=== PATIENT | male | born 1975 | race Caucasian/White ===

== ENCOUNTER → 2017-02-03 | Outpatient (CLI) | payer MEDICARE ==
[~2017-02-03] MED LIST: ACCUPRIL40 MG PO; ALBUTEROL17 GM INH; ALLEGRA180 MG PO; CARDURA2 MG PO; FLEXERIL10 MG PO; GEODON80 MG PO; GLUCOTROL10 MG PO; GLUMETZA1000 MG/BO PO; IBUPROFEN800 MG PO; LEVOTHYROXINE150 MCG PO; NAPROSYN-EC500 MG PO; PRAVASTATIN SOD40 MG PO; ROBAXIN500 MG PO; SINGULAIR PO; TENORMIN50 MG PO; TESTERONE TOP
--- NOTE | ~2017-02-03 | CR93 ---
[facility]. [facility] A Service [facility] RADIOLOGY TEXT RESULTS PATIENT: OLINDA FERMIN LOCATION: [facility] : [birth year] UNIT #: [id number] AGE: [address]: Gabino Alas MD SEX: M ORDER DR: [id number] [place] [id number] O MR#: [id number] Acc #: [id number] NAME: OLINDA FERMIN : 1975 SEX: M STUDY DATE/TIME: 02/03/2017 13:34 UNIT: SRAD ROOM: STUDY DESCRIPTION: CR Elbow Min 3 Views Lt Attending Physician: Gabino Alas M.D. Referring Physician: Gabino Alas M.D. Ordering Physician: Amarilis Conway A.P.R.N. Primary Care Physician: Amarilis Conway A.P.R.N. MEDICAL IMAGING REPORT This report is preliminary unless electronic signature is present. EXAM Left elbow series. DATE OF EXAM 02/03/2017 HISTORY 41-year-old male complaining of 1-week history of elbow pain and hand numbness. TECHNIQUE 3-view left elbow series. FINDINGS No fracture, dislocation, arthropathy or other osseous abnormality is demonstrated. No visible joint effusion. IMPRESSION Negative left elbow series. Dictated by... Gabino Walden M.D. THIS IS AN ELECTRONICALLY VERIFIED REPORT Gabino Walden M.D. at 02/03/2017 4:29 PM ADAM/lalo TD: 02/03/2017 16:26 JOB #: [id number] MEDICAL IMAGING REPORT [facility]. [facility] A Service [facility] RADIOLOGY TEXT RESULTS PATIENT: OLINDA FERMIN LOCATION: [facility] : 73 UNIT #: [id number] AGE: [address]: Gabino Alas MD SEX: M ORDER DR: Page 1 of 1
== END | disposition home or self-care (01) ==
LOC: SRAD 13:28
DX: G56.22 Lesion of ulnar nerve, left upper limb (principal)
CPT/HCPCS: 73080